=== PATIENT | female | born 1980 | race Caucasian/White ===

== ENCOUNTER → 2024-03-05 | Outpatient (CLI) | payer OTHER ==
[~2024-03-05] MED LIST: FLUO10 PO; IBUP800 PO; KETO200ER PO; Norco 7.5-3251 EACH PO; PREN-16 PO; SERT100 PO; Verotin-Gr Cap1 EACH PO
[2024-03-13 05:48] LABS: HPV HIGH RISK BY TMA Not Detected; HPV SOURCE Cervical
== END ==
LOC: LAB SHORT 18:09 → LAB 18:09
PROVIDERS: Family Medicine
DX: Z01.419 Encounter for gynecological examination (general) (routine) without abnormal findings (principal)
CPT/HCPCS: 87624; G0123